=== PATIENT | female | born 1985 | race Caucasian/White ===

== ENCOUNTER → 2023-05-29 | Emergency (ER) | payer OTHER ==
[~2023-05-29] MED LIST: AZITHROMYCIN 250 MG TAB ONE; LEVALBUTEROL 1.25 MG/3 ML NEB ONE
[2023-05-29 08:09] LABS: SARS-CoV-2 Antigen CONTROL BLUE LINE VIS/BG OK; SARS-CoV-2 Antigen Rapid Res Negative (Negative)
--- NOTE | 2023-05-29 08:55 | RAD REPORT ---
EXAM DESCRIPTION: Jeri Single View05/29/2023 8:34 am CLINICAL HISTORY: Cough COMPARISON: none FINDINGS: The lungs appear clear of acute infiltrate. The heart is normal size IMPRESSION: No acute abnormalities displayed
--- NOTE | 2023-05-29 09:09 | EDPHYS ---
Physician Documentation [facility] Name: Ad Roberts Age: 37 yrs Sex: Female : 1985 Arrival Date: 05/29/2023 Time: 07:35 Bed 20 Private MD: ED Physician Young Acuna HPI: 05/28 07:45 This 37 yrs old Female presents to ER via Unassigned with complaints of Cough, Fever, rn Sore Throat. 07:45 The patient or guardian reports cough. Onset: The symptoms/episode began/occurred 2 rn day(s) ago. Severity of symptoms: At their worst the symptoms were mild, in the emergency department the symptoms are unchanged. Modifying factors: The symptoms are alleviated by nothing, the symptoms are aggravated by nothing. 07:47 Associated signs and symptoms: Pertinent positives: fever, sore throat, Pertinent rn negatives: chest pain, vomiting. The patient has experienced similar episodes in the past. . Historical: - Allergies: 07:39 Latex, Natural Rubber; aa5 - PMHx: 07:39 Lupus erythematosus; aa5 - PSHx: 07:39 None; aa5 - Immunization history:: Adult Immunizations unknown. - Social history:: Smoking status: Patient reports the use of cigarette tobacco products, denies chronic smoking, but will smoke occasionally. - Family history:: not pertinent. - Hospitalizations: : No recent hospitalization is reported. ROS: 08:57 Constitutional: Positive for fever and chills ENT: Positive for sore throat video intern: Negative for chest pain, palpitations, and edema, Respiratory: Positive for cough Abdomen/GI: Negative for abdominal pain, nausea, vomiting, diarrhea, and constipation MS/Extremity: Negative for injury and deformity, Skin: Negative for injury, rash, and discoloration, Neuro: Negative for headache, weakness, numbness, tingling, and seizure, Exam: 09:03 Constitutional: This is a well developed, well nourished patient who is awake, alert, rn and in no acute distress. Head/Face: Normocephalic, atraumatic. ENT: Oropharynx with mild redness, no stridor Neck: Trachea midline, no masses palpated, and no cervical lymphadenopathy. Supple, full range of motion without nuchal rigidity, or vertebral point tenderness. No Meningismus. Cardiovascular: Regular rate and rhythm. No pulse deficits. Respiratory: No increased work of breathing, no retractions or nasal flaring. Mild wheezing focal right midlung Abdomen/GI: Soft, non-tender MS/ Extremity: Pulses equal, no cyanosis. Neuro: Awake and alert, GCS 15 Vital Signs: 07:39 BP 116 / 83; Pulse 71; Resp 18 S; Temp 98.5(O); Pulse Ox 97% on R/A; Weight 68.04 kg aa5 (R); Height 5 ft. 6 in. (R); 08:00 BP 99 / 73; Pulse 64; Resp 18; Pulse Ox 100% on R/A; db 09:00 BP 114 / 75; Pulse 67; Resp 18; Pulse Ox 99% ; db 07:39 Body Mass Index 24.21 (68.04 kg, 167.64 cm) aa5 Faustino Coma Score: 08:00 Eye Response: spontaneous(4). Motor Response: obeys commands(6). Verbal Response: db oriented(5). Total: 15. MDM: 07:39 Patient medically screened. rn 09:06 Differential Diagnosis: Bronchitis Influenza Upper Respiratory Infection Pharyngitis rn Viral Syndrome Pneumonia. Data reviewed: vital signs, nurses notes, lab test result(s), radiologic studies, plain films, and as a result, I will discharge patient. Counseling: I had a detailed discussion with the patient and/or guardian regarding the historical points, exam findings, and any diagnostic results supporting the discharge/admit diagnosis, lab results, radiology results, the need for outpatient follow up, to return to the emergency department if symptoms worsen or persist or if there are any questions or concerns that arise at home. Special discussion: I discussed with the patient/guardian in detail that at this point there is no indication for admission to the hospital. It is understood, however, that if the symptoms persist or worsen the patient needs to return immediately for re-evaluation. 05/28 07:44 Order name: Strep rn 05/28 07:44 Order name: Flu; Complete Time: 08:56 rn 05/28 07:44 Order name: SARS RAPID; Complete Time: 08:56 rn 05/28 08:11 Order name: Throat Culture EDMS 05/28 07:44 Order name: XRAY Chest (1 view); Complete Time: 08:56 rn Administered Medications: 07:58 Drug: Levalbuterol Inhalation 1.25 mg Inhalation once Route: Inhalation; db 09:28 Follow up: Response: No adverse reaction db 09:10 Drug: AZITHromycin PO 500 mg PO once Route: PO; db 09:28 Follow up: Response: No adverse reaction db Disposition Summary: 05/29/23 09:08 Discharge Ordered Notes: Location: Home rn Problem: new rn Symptoms: have improved rn Condition: Stable rn Diagnosis - Pneumonia, unspecified organism rn Followup: rn - With: Private Physician - When: As needed - Reason: Recheck today's complaints, Re-evaluation by your physician Discharge Instructions: - Discharge Summary Sheet rn - Community-Acquired Pneumonia, Adult rn Forms: - Medication Reconciliation Form rn - Thank You Letter rn - Antibiotic maternity floor supervisor - Prescription Opioid Use rn - Patient Portal Instructions rn - Leadership Thank You Letter rn Prescriptions: - albuterol sulfate 90 mcg/actuation Inhalation HFA Aerosol Inhaler - inhale 2 inhalation INHALATION route every 3 to 4 hours As needed as needed for rn bronchospasm; administer via ventilator; 1 unit; Refills: 0, Product Selection Permitted - Zithromax Z-Adam 250 mg Oral Tablet - take 1 tablet ORAL route as directed for 5 days Day 1 - take two (2) tablets rn one time. Day 2, 3, 4 , 5 take one (1) tablet once daily.; 6 tablet; Refills: 0, Product Selection Permitted Signatures: Dispatcher [employer] Young Esposito MD MD rn Calderon, Audri, RN RN aa5 Maricruz Montero RN RN db
--- NOTE | 2023-05-29 09:09 | ER ---
Nurse's Notes [facility] Name: Ad Roberts Age: 37 yrs Sex: Female : 1985 Arrival Date: 05/29/2023 Time: 07:35 Bed 20 Private MD: Diagnosis: Pneumonia, unspecified organism Presentation: 05/28 07:39 Chief complaint: Patient states: chills, generalized weakness, sore throat, and cough aa5 that began 2 days ago. 07:39 Coronavirus screen: cough unrelated to allergies. Ebola Screen: Patient denies travel aa5 to an Ebola-affected area in the 21 days before illness onset. Initial Sepsis Screen: Does the patient meet any 2 criteria? No. Patient's initial sepsis screen is negative. Does the patient have a suspected source of infection? No. Patient's initial sepsis screen is negative. Risk Assessment: Do you want to hurt yourself or someone else? Patient reports no desire to harm self or others. Onset of symptoms was May 2023. 07:39 Acuity: MICHAEL 3 aa5 07:39 Method Of Arrival: Ambulatory aa5 Historical: - Allergies: 07:39 Latex, Natural Rubber; aa5 - PMHx: 07:39 Lupus erythematosus; aa5 - PSHx: 07:39 None; aa5 - Immunization history:: Adult Immunizations unknown. - Social history:: Smoking status: Patient reports the use of cigarette tobacco products, denies chronic smoking, but will smoke occasionally. - Family history:: not pertinent. - Hospitalizations: : No recent hospitalization is reported. Screenin:44 [facility] ED Fall Risk Assessment (Adult) History of falling in the last 3 months, db including since admission No falls in past 3 months (0 pts) Confusion or Disorientation No (0 pts) Intoxicated or Sedated No (0 pts) Impaired Gait No (0 pts) Mobility Assist Device Used No (0 pt). 09:27 Abuse screen: Denies threats or abuse. Denies injuries from another. Nutritional db screening: No deficits noted. Tuberculosis screening: No symptoms or risk factors identified. Assessment: 07:44 Reassessment: Patient appears in no apparent distress at this time. Patient and/or db family updated on plan of care and expected duration. Pain level reassessed. Patient is alert, oriented x 3, equal unlabored respirations, skin warm/dry/pink. COUGH AND CONGESTION WITH SORE THROAT. General: Appears in no apparent distress. comfortable, Behavior is calm, cooperative. Pain: Complains of pain in SORE THROAT. Neuro: Level of Consciousness is awake, alert, obeys commands, Oriented to person, place, time, situation. Cardiovascular: No deficits noted. Respiratory: Airway is patent Respiratory effort is even, unlabored, Respiratory pattern is regular, symmetrical, Breath sounds are coarse in right upper lobe. GI: No deficits noted. No signs and/or symptoms were reported involving the gastrointestinal system. : No deficits noted. No signs and/or symptoms were reported regarding the genitourinary system. EENT: Throat is pink. Derm: No deficits noted. No signs and/or symptoms reported regarding the dermatologic system. Musculoskeletal: No deficits noted. No signs and/or symptoms reported regarding the musculoskeletal system. 08:50 Reassessment: PT WITH RADIOLOGY. db 09:27 Reassessment: Patient appears in no apparent distress at this time. Patient and/or db family updated on plan of care and expected duration. Pain level reassessed. Patient is alert, oriented x 3, equal unlabored respirations, skin warm/dry/pink. Patient states feeling better. Patient states symptoms have improved. Vital Signs: 07:39 BP 116 / 83; Pulse 71; Resp 18 S; Temp 98.5(O); Pulse Ox 97% on R/A; Weight 68.04 kg aa5 (R); Height 5 ft. 6 in. (R); 08:00 BP 99 / 73; Pulse 64; Resp 18; Pulse Ox 100% on R/A; db 09:00 BP 114 / 75; Pulse 67; Resp 18; Pulse Ox 99% ; db 07:39 Body Mass Index 24.21 (68.04 kg, 167.64 cm) aa5 Headrick Coma Score: 08:00 Eye Response: spontaneous(4). Motor Response: obeys commands(6). Verbal Response: db oriented(5). Total: 15. ED Course: 07:38 Patient arrived in ED. rg4 07:38 Young Acuna MD is Attending Physician. rn 07:39 Arm band placed on Patient placed in an exam room, on a stretcher. aa5 07:44 Maricruz Montero RN is Primary Nurse. db 07:46 Patient has correct armband on for positive identification. Bed in low position. Call db light in reach. Side rails up X 1. Pulse ox on. NIBP on. 07:47 Triage completed. aa5 07:49 Initial lab(s) drawn, by me, sent to lab. COVID swab sent to lab. Flu and/or RSV swab db sent to lab. Strep swab sent to lab. 08:15 X-ray(s) taken. db 08:25 Patient maintains SpO2 saturation greater than 95% on room air. db 08:26 Provided Education on: BREATHING TREATMENT, XRAY, LABS. db 08:26 Initial Neb Treatment Given as ordered Patient was instructed and evaluated on db procedure Patient tolerated procedure well without adverse effect. 08:27 O2 via IMPROVED AFTER BREATHING TREATMENT Response to oxygen therapy: symptoms improved.db 08:36 XRAY Chest (1 view) In Process Unspecified. EDMS 09:27 No provider procedures requiring assistance completed. Patient did not have IV access db during this emergency room visit. Administered Medications: 07:58 Drug: Levalbuterol Inhalation 1.25 mg Inhalation once Route: Inhalation; db 09:28 Follow up: Response: No adverse reaction db 09:10 Drug: AZITHromycin PO 500 mg PO once Route: PO; db 09:28 Follow up: Response: No adverse reaction db Medication: 07:44 VIS not applicable for this client. db Outcome: 09:08 Discharge ordered by . rn 09:27 Discharged to home ambulatory, db 09:27 Condition: stable 09:27 Discharge instructions given to patient, Instructed on discharge instructions, follow up and referral plans. Prescriptions given X 2, 09:28 Patient left the ED. db Signatures: Dispatcher [employer] EDDC Young Acuna MD MD rn Calderon, Audri, RN RN aa5 Kathleen Roberts4 Maricruz Montero RN RN db Corrections: (The following items were deleted from the chart) 07:46 07:44 Respiratory: Airway is patent Respiratory effort is even, unlabored, Respiratory db pattern is regular, symmetrical, Breath sounds are clear db
[2023-05-29 09:52] VITALS: BP 114/75; TEMP 98.5; O2SAT 99
== END ==
LOC: ER 07:35
DX: J18.9 Pneumonia, unspecified organism (principal); Z11.52 Encounter for screening for COVID-19; F17.210 Nicotine dependence, cigarettes, uncomplicated; Z91.040 Latex allergy status; Z91.048 Other nonmedicinal substance allergy status
CPT/HCPCS: 87070; 36415; 87081; 87804 ×2; 71045; 99285; 87811; J7614

== ENCOUNTER 2023-06-16 10:41 | Emergency (ER) | payer OTHER ==
--- OUTSIDE RECORDS SUMMARY | 2023-06-16 10:45 | XMS REPORT | Continuity of Care Document ---
Author Name Unknown Address [address] [facility] [address] [place] [address] [facility] Address [address] [facility] [place] [address] Care Team Providers Care Alcohol Rubber Name Role Phone PCP, PATIENT DOES NOT HAVE A Primary Care Physic ALFREDA Burnett Attending Clinician PREETHI Gross Attending Clinician Unavail able [facility] UnaPreethi Roper Attending Clinician + Doctor Unassigned, [place] Attending Clinician U navailable Payers Payer Name Policy Type Policy Number Effective Date Expirati on Date Source [facility] [id number] 2023 00:00:00 [employer] [place] [id number] 2023 00:00:00 Allergies, Adverse Reactions, Alerts Allergy Name Allergy Type Status Severity Reaction(s) Onset Date Inactive Date Treating Clinician Comments Source NO KNOWN ALLERGIE S Drug Class Active [facility] Social History Social Habit Start Date Stop Date Quantity Comments Source Sexual orientation U [facility] Sex Assigned At 1985 00:00:00 1985 00:00:00 [facility] Smoking Status Start Date Stop Date Source Tobacco smoking consumption unknown [facility] Vital Signs Vital Name Observation Time Observation Value Comments Dao shi Systolic blood pressure 2023-04-07 19:55:00 134 mm[Hg] [facility] Diastolic blood pressure 2023-04-07 19:55:00 83 mm[Hg] [facility] Heart rate 2023-04-07 19:55:00 74 /min [facility] Body temperature 2023-04-07 19:55:00 36.17 Nery [facility] Respiratory rate 2023-04-07 19:55:00 18 /min [facility] Body height 2023-04-07 19:55:00 167.6 cm [facility] Body weight 2023-04-07 19:55:00 73.936 kg [facility] BMI 2023-04-07 19:55:00 26.31 kg/m2 [facility] Procedures Procedure Date / Time Performed Performing Clinicia n Source POCT TEST 2023-04-07 20:01:00 Frankie Booth [facility] CONSENT/REFUSAL FOR DIAGNOSIS AND TREATMENT 2023-04-07 19:31:59 Doctor Unassigned, [place] [facility] ASSIGNMENT OF BENEFITS 2023-04-07 19:31:42 Docto r Unassigned, [place] [facility] Encounters Start Date/Time End Date/Time Encounter Type Admission Type Attending Clinicians Care Facility Care Department Encounter ID Source 2023-05-21 10:30:00 2023-05-21 10:30:[address] [facility] [id number] [facility] 2023-04-28 13:30:00 2023-04-28 13:30:[address] [facility] [id number] [facility] 2023-04-07 14:00:00 2023-04-07 14:13:14 Nurse Visit Visit, [facility] Nurse Preethi Booth [facility] [id number] [facility] 2023-04-07 14:00:00 2023-04-07 14:13:[address] [facility] [id number] [facility] 2023-04-07 00:00:00 2023-04-07 00:00:00 Orders Only Doctor Unassigned, [place] [facility] [id number] [facility] Results Test Description Test Time Test Comments Results Result Co mments Source [facility]
--- NOTE | 2023-06-16 12:43 | RAD REPORT ---
EXAM DESCRIPTION: RAD - Foot Right 3 View - 06/16/2023 12:30 pm CLINICAL HISTORY: PAIN COMPARISON: <Comparisons> FINDINGS: Soft tissue swelling is present affecting the second toe. No fracture or dislocation seen. Tiny calcaneal spurs.
[2023-06-16] MEDS ORDERED: KETOROLAC 30 MG/ML INJ ONE (13:08)
[2023-06-16] MEDS ORDERED: HYDROCODONE/APAP 5/325 MG TAB ONE (13:09)
--- NOTE | 2023-06-16 13:40 | ER ---
Nurse's Notes [facility] Name: Ad Roberts Age: 37 yrs Sex: Female : 1985 Arrival Date: 06/16/2023 Time: 10:41 Bed Treatment Private MD: Diagnosis: Contusion of right foot-With avulsion of nail bed Presentation: 06/15 10:59 Method Of Arrival: Ambulatory ll1 11:00 Chief complaint: Patient states: R foot crushed at noon yesterday when a large chair ll1 fell onto it. Coronavirus screen: Client denies travel out of the [place] in the last 14 days. At this time, the client does not indicate any symptoms associated with coronavirus-19. Ebola Screen: Patient denies travel to an Ebola-affected area in the 21 days before illness onset. Initial Sepsis Screen: Does the patient meet any 2 criteria? No. Patient's initial sepsis screen is negative. Does the patient have a suspected source of infection? No. Patient's initial sepsis screen is negative. Risk Assessment: Do you want to hurt yourself or someone else? Patient reports no desire to harm self or others. Onset of symptoms was June 15, 2023. 11:00 Acuity: MICHAEL 4 ll1 Historical: - Allergies: 10:55 Latex; ll1 10:59 FISH PRODUCT DERIVATIVES; ll1 - PMHx: 10:55 Lupus erythematosus; ll1 - Immunization history:: Adult Immunizations up to date. - Infectious Disease History:: Denies. - Social history:: Smoking status: Patient reports the use of cigarette tobacco products, denies chronic smoking, but will smoke occasionally, Reported history of juuling and/or vaping. Screenin:15 [facility] ED Fall Risk Assessment (Adult) History of falling in the last 3 months, ss including since admission No falls in past 3 months (0 pts) Confusion or Disorientation No (0 pts) Intoxicated or Sedated No (0 pts) Impaired Gait No (0 pts) Mobility Assist Device Used No (0 pt) Altered Elimination No (0 pt) Score/Fall Risk Level 0 - 2 = Low Risk. Abuse screen: Denies threats or abuse. Denies injuries from another. Nutritional screening: No deficits noted. Tuberculosis screening: Never had TB. Assessment: 13:15 General: Appears in no apparent distress. comfortable, Behavior is calm, cooperative. ss Pain: Complains of pain in R foot Pain currently is 8 out of 10 on a pain scale. Quality of pain is described as tender, throbbing. Neuro: Level of Consciousness is awake, alert, obeys commands, Oriented to person, place, time, situation. Respiratory: Airway is patent Respiratory effort is even, unlabored, Respiratory pattern is regular, symmetrical. Derm: Skin is pink, warm \T\ dry. normal. 13:55 Reassessment: awaiting for discharge papers to be printed. ss 14:11 Reassessment: Patient appears in no apparent distress at this time. Patient and/or ss family updated on plan of care and expected duration. Pain level reassessed. Vital Signs: 11:00 BP 124 / 78; Pulse 74; Resp 16; Temp 98.9; Pulse Ox 96% ; Pain 8/10; ll1 14:11 BP 122 / 70; Pulse 64; Resp 16; Pulse Ox 98% ; Pain 5/10; ss 11:00 Pain Scale: Adult ll1 14:11 Pain Scale: Adult ss ED Course: 10:44 Patient arrived in ED. im 10:55 Arm band placed on. ll1 11:01 Triage completed. ll1 11:06 Carolina Sousa is Attending Physician. ci 12:32 XRAY Foot RIGHT 3 View In Process Unspecified. EDMS 13:06 Aissatou North, RN is Primary Nurse. ss 13:15 Patient has correct armband on for positive identification. Bed in low position. Call ss light in reach. 14:11 No provider procedures requiring assistance completed. Patient did not have IV access ss during this emergency room visit. Administered Medications: 13:14 Drug: Ketorolac IM 30 mg IM once Route: IM; Site: left gluteus; ss 14:12 Follow up: Response: No adverse reaction; Pain is decreased ss 13:14 Drug: HYDROcodone-acetaminophen PO 5 mg-325 mg 1 tabs PO once Route: PO; ss 14:12 Follow up: Response: No adverse reaction; Pain is decreased; RASS: Alert and Calm (0) ss Medication: 13:15 VIS not applicable for this client. ss Outcome: 13:39 Discharge ordered by MD. ci 14:11 Discharged to home ambulatory, ss 14:11 Condition: good 14:11 Discharge instructions given to patient, Instructed on discharge instructions, follow up and referral plans. Demonstrated understanding of instructions, follow-up care, Prescriptions given X 2, 14:12 Patient left the ED. ss Signatures: Dispatcher [employer] EDAissatou Gorman RN RN Angelo Marshall RN RN ll1 Debby Clarke Iheonunekwu, Carolina Corrections: (The following items were deleted from the chart) 11:00 10:59 Social history: Smoking status: Patient denies any tobacco usage or history of. ll1 ll1
--- NOTE | 2023-06-16 13:40 | EDPHYS ---
Physician Documentation [facility] Name: Ad Roberts Age: 37 yrs Sex: Female : 1985 Arrival Date: 06/16/2023 Time: 10:41 Bed Treatment Private MD: ED Physician Carolina Sousa HPI: 06/15 13:24 This 37 yrs old Female presents to ER via Ambulatory with complaints of Crush Injury To ci Foot. 13:24 Patient is a 37-year-old female with PMH lupus who presents with right foot injury that ci occurred yesterday afternoon. Patient lifted a large cheese chair that accidentally fell on the right foot, reports right second toe nail avulsed and she had some bleeding that is now controlled. Has had swelling and pain around the great toe. No aggravating or relieving factors. Tetanus up-to-date.. Historical: - Allergies: 10:55 Latex; ll1 10:59 FISH PRODUCT DERIVATIVES; ll1 - PMHx: 10:55 Lupus erythematosus; ll1 - Immunization history:: Adult Immunizations up to date. - Infectious Disease History:: Denies. - Social history:: Smoking status: Patient reports the use of cigarette tobacco products, denies chronic smoking, but will smoke occasionally, Reported history of juuling and/or vaping. ROS: 13:24 MS/extremity: Positive for contusion, ecchymosis, pain, swelling, tenderness, ci Exam: 13:24 Constitutional: This is a well developed, well nourished patient who is awake, alert, ci and in no acute distress. Head/Face: Normocephalic, atraumatic. Eyes: Pupils equal round and reactive to light, extra-ocular motions intact. Lids and lashes normal. Conjunctiva and sclera are non-icteric and not injected. Cornea within normal limits. Periorbital areas with no swelling, redness, or edema. ENT: Nares patent. No nasal discharge, no septal abnormalities noted. Tympanic membranes are normal and external auditory canals are clear. Oropharynx with no redness, swelling, or masses, exudates, or evidence of obstruction, uvula midline. Mucous membranes moist. Neck: Trachea midline, no thyromegaly or masses palpated, and no cervical lymphadenopathy. Supple, full range of motion without nuchal rigidity, or vertebral point tenderness. No Meningismus. Chest/axilla: Normal chest wall appearance and motion. Nontender with no deformity. No lesions are appreciated. Cardiovascular: Regular rate and rhythm with a normal S1 and S2. No gallops, murmurs, or rubs. Normal PMI, no JVD. No pulse deficits. Respiratory: Lungs have equal breath sounds bilaterally, clear to auscultation and percussion. No rales, rhonchi or wheezes noted. No increased work of breathing, no retractions or nasal flaring. Abdomen/GI: Soft, non-tender, with normal bowel sounds. No distension or tympany. No guarding or rebound. No evidence of tenderness throughout. Back: No spinal tenderness. No costovertebral tenderness. Full range of motion. Skin: Warm, dry with normal turgor. Normal color with no rashes, no lesions, and no evidence of cellulitis. MS/ Extremity: Pulses equal, no cyanosis. Neurovascular intact. Full, normal range of motion. R foot mild ecchymosis around 2nd metatarsal. No step offs/deformity Neuro: Awake and alert, GCS 15, oriented to person, place, time, and situation. Cranial nerves II-XII grossly intact. Motor strength 5/5 in all extremities. Sensory grossly intact. Cerebellar exam normal. Normal gait. Psych: Awake, alert, with orientation to person, place and time. Behavior, mood, and affect are within normal limits. 13:52 MS/ Extremity: Pulses equal, no cyanosis. Neurovascular intact. Full, normal range ci of motion. Right foot contusion, right second toe avulsed nail with moderate tenderness to palpation and mild ecchymosis. Vital Signs: 11:00 BP 124 / 78; Pulse 74; Resp 16; Temp 98.9; Pulse Ox 96% ; Pain 8/10; ll1 14:11 BP 122 / 70; Pulse 64; Resp 16; Pulse Ox 98% ; Pain 5/10; ss 11:00 Pain Scale: Adult ll1 14:11 Pain Scale: Adult ss MDM: 12:00 Patient medically screened. ci 13:24 Differential diagnosis: fracture, sprain, foreign body, arthritis, cellulitis. Data ci reviewed: vital signs, nurses notes. ED course: Patient presents for right foot injury. X-ray with no obvious fracture. Likely sustained a contusion. Will discharge with naproxen and outpatient podiatry/Ortho follow-up.. 06/15 11:59 Order name: XRAY Foot RIGHT 3 View; Complete Time: 13:23 ci Administered Medications: 13:14 Drug: Ketorolac IM 30 mg IM once Route: IM; Site: left gluteus; ss 14:12 Follow up: Response: No adverse reaction; Pain is decreased ss 13:14 Drug: HYDROcodone-acetaminophen PO 5 mg-325 mg 1 tabs PO once Route: PO; ss 14:12 Follow up: Response: No adverse reaction; Pain is decreased; RASS: Alert and Calm (0) ss Disposition Summary: 06/16/23 13:39 Discharge Ordered Notes: Location: Home ci Condition: Stable ci Diagnosis - Contusion of right foot - With avulsion of nail bed(06/16/23 13:56) ci Followup: ci - With: Private Physician - When: 1 - 2 days - Reason: Recheck today's complaints, Re-evaluation by your physician Discharge Instructions: - Discharge Summary Sheet ci - Fingernail or Toenail Removal, Adult, Care After ci Forms: - Medication Reconciliation Form ci - Thank You Letter ci - Antibiotic Education ci - Prescription Opioid Use ci - Patient Portal Instructions ci - Leadership Thank You Letter ci Prescriptions: - mupirocin 2 % Topical ointment - apply 1 application TOPICAL route 2 times per day Apply to toe BID X 7 DAYS; 1 ci Each; Refills: 0, Product Selection Permitted - Anaprox DS 550 mg Oral Tablet - take 1 tablet ORAL route every 12 hours As needed; 20 tablet; Refills: 0, ci Product Selection Permitted Signatures: Dispatcher MedHo Aissatou Silva RN RN ss Lewis, Lynsay, RN RN ll1 Carolina Sousa ci Corrections: (The following items were deleted from the chart) 11:00 10:59 Social history: Smoking status: Patient denies any tobacco usage or history of. ll1 ll1 13:56 13:39 Contusion of right foot ci ci
[2023-06-16 14:44] VITALS: BP 122/70; TEMP 98.9; O2SAT 98
== END 2023-06-16 14:12 | disposition home or self-care (01) ==
LOC: ER 10:41
DX: S90.221A Contusion of right lesser toe(s) with damage to nail, initial encounter (principal); F17.210 Nicotine dependence, cigarettes, uncomplicated; Z91.013 Allergy to seafood; Z91.040 Latex allergy status

== ENCOUNTER 2023-11-25 09:07 | Emergency (ER) | payer OTHER ==
--- OUTSIDE RECORDS SUMMARY | 2023-11-25 09:11 | XMS REPORT | Continuity of Care Document ---
Author Name Unknown Address [address] [facility] [address] [place] [address] [facility] thconnect Address [address] [facility] [address] [place] [address] Care Team Providers Care Certified Executive Chef Name Role Phone Pcp, Patient Does Not Have A Primary Care Physic zane JENNY LUGO Attending Clinician Unavailable ALFREDA CASTANEDA Attending Clinician UnavailPREETHI Arriola Attending Clinician Unavail able [facility], [facility] UnaPreethi Roper Attending Clinician + Doctor Unassigned, [place] Attending Clinician U navailable Payers Payer Name Policy Type Policy Number Effective Date Expirati on Date Source [facility] [id number] 2023 00:00:00 [employer] [place] [id number] 2023 00:00:00 Allergies, Adverse Reactions, Alerts Allergy Name Allergy Type Status Severity Reaction(s) Onset Date Inactive Date Treating Clinician Comments Source [facility] [employer] Active Swelling 07-05 00:00: 00 [facility] Latex Propensi ty to adverse reaction s Active Swelling 07-05 00:00: 00 [facility] NO KNOWN ALLERGIE S Drug Class Active [facility] Social History Social Habit Start Date Stop Date Quantity Comments Source History of tobacco use Cigarette Smoker [facility] Tobacco use and exposure 2023-07-06 00:00:00 2023-07-06 00:00:00 Smokeless tobacco non-user [facility] Alcohol intake 2023-07-06 00:00:00 2023-07-06 00:00:00 Current drinker of alcohol (finding) [facility] History of Social function 2023-07-06 00:00:00 2023-07-06 00:00:00 [facility] Alcohol Comment 2023-07-06 00:00:00 2023-07-06 00:00:00 social [facility] Sex Ass[birth year] At 1985 00:00:00 1985 00:00:00 [facility] Smoking Status Start Date Stop Date Source Tobacco smoking consumption unknown [facility] Smokes tobacco daily 2023-07-06 00:00:00 [facility] Medications Ordered Medication Name Filled Medication Name Start Date Stop Date Current Medication? Ordering Clinician Indication Dosage Frequency Signature (SIG) Comments Components Source fluconazole 150 mg tablet 07-05 00:00: 00 Yes [id number] Take one tablet PO today, then repeat in 72 hours [facility] Vital Signs Vital Name Observation Time Observation Value Comments S ource Systolic blood pressure 2023-07-06 15:57:00 130 mm[Hg] [facility] Diastolic blood pressure 2023-07-06 15:57:00 67 mm[Hg] [facility] Heart rate 2023-07-06 15:57:00 77 /min [facility] Respiratory rate 2023-07-06 15:57:00 18 /min [facility] Body height 2023-07-06 15:57:00 167.6 cm [facility] Body weight 2023-07-06 15:57:00 71.668 kg [facility] BMI 2023-07-06 15:57:00 25.50 kg/m2 [facility] Systolic blood pressure 2023-04-07 19:55:00 134 mm[Hg] [facility] Diastolic blood pressure 2023-04-07 19:55:00 83 mm[Hg] [facility] Heart rate 2023-04-07 19:55:00 74 /min [facility] Body temperature 2023-04-07 19:55:00 36.17 Nery [facility] Respiratory rate 2023-04-07 19:55:00 18 /min [facility] Body height 2023-04-07 19:55:00 167.6 cm [facility] Body weight 2023-04-07 19:55:00 73.936 kg [facility] BMI 2023-04-07 19:55:00 26.31 kg/m2 [facility] Procedures Procedure Date / Time Performed Performing Clinicia n Source POCT TEST 2023-04-07 20:01:00 Frankie Alan [facility] CONSENT/REFUSAL FOR DIAGNOSIS AND TREATMENT 2023-04-07 19:31:59 Doctor Unassigned, [place] [facility] ASSIGNMENT OF BENEFITS 2023-04-07 19:31:42 Docto r Unassigned, [place] [facility] Encounters Start Date/Time End Date/Time Encounter Type Admission Type Attending Clinicians Care Facility Care Department Encounter ID Source 2024-07-11 09:30:00 2024-07-11 09:30:00 Outpatient JENNY CORONEL [facility] [id number] [facility] 2023-07-06 11:00:00 2023-07-06 11:20:52 Outpatient JENNY CORONEL [facility] [id number] [facility] 2023-07-06 11:00:00 2023-07-06 11:20:52 Office Visit Jenny Lugo [facility] [id number] [facility] 2023-05-21 10:30:00 2023-05-21 10:30:00 Outpatient ALFREDA ALDANA [facility] [id number] [facility] 2023-04-28 13:30:00 2023-04-28 13:30:00 Outpatient PREETHI WHITAKER [facility] [id number] [facility] 2023-04-07 14:00:00 2023-04-07 14:13:14 Nurse Visit Visit, [facility] Nurse Preethi Alan [employer] [facility] [id number] [facility] 2023-04-07 14:00:00 2023-04-07 14:13:14 Outpatient R PREETHI ALAN [facility] [id number] [facility] 2023-04-07 00:00:00 2023-04-07 00:00:00 Orders Only Doctor Unassigned, [place] [facility] [id number] [facility] Results Test Description Test Time Test Comments Results Result Co mments Source [facility]
[2023-11-25 09:54] LABS: SARS-CoV-2 Antigen CONTROL BLUE LINE VIS/BG OK; SARS-CoV-2 Antigen Rapid Res Negative (Negative)
[2023-11-25] MEDS ORDERED: AZITHROMYCIN 250 MG TAB ONE (10:41)
--- NOTE | 2023-11-25 11:01 | ER ---
Nurse's Notes [facility] Name: Ad Roberts Age: 38 yrs Sex: Female : 1985 Arrival Date: 11/25/2023 Time: 09:07 Bed 12 Private MD: Diagnosis: Acute upper respiratory infection, unspecified;Cough Presentation: 11/24 09:15 Chief complaint: Patient states: throat hurts bad, headache and sinus pressure, chest iw hurts when she breathes, fever , symptoms started Thursday. Coronavirus screen: Client presents with at least one sign or symptom that may indicate coronavirus-19. Ebola Screen: No symptoms or risks identified at this time. Initial Sepsis Screen: Does the patient meet any 2 criteria? No. Patient's initial sepsis screen is negative. Does the patient have a suspected source of infection? No. Patient's initial sepsis screen is negative. Risk Assessment: Do you want to hurt yourself or someone else? Patient reports no desire to harm self or others. Onset of symptoms was November 22, 2023. 09:15 Method Of Arrival: Ambulatory iw 09:15 Acuity: MICHAEL 4 iw Triage Assessment: 09:15 General: Appears in no apparent distress. Behavior is calm, cooperative. Pain: iw Complains of pain in head. Historical: - Allergies: 09:16 FISH PRODUCT DERIVATIVES; iw 09:16 Latex; iw - Home Meds: 09:16 None [Active]; iw - PMHx: 09:16 Lupus erythematosus; iw - PSHx: 09:16 Tonsillectomy; D\T\C; iw - Immunization history:: Adult Immunizations not up to date. - Infectious Disease History:: Denies. - Social history:: Smoking status: Patient reports the use of cigarette tobacco products. - Family history:: not pertinent. Screenin:09 [facility] ED Fall Risk Assessment (Adult) History of falling in the last 3 months, tm6 including since admission No falls in past 3 months (0 pts) Confusion or Disorientation No (0 pts) Intoxicated or Sedated No (0 pts) Impaired Gait No (0 pts) Mobility Assist Device Used No (0 pt) Altered Elimination No (0 pt) Score/Fall Risk Level 0 - 2 = Low Risk Oriented to surroundings, Maintained a safe environment, Educated pt \T\ family on fall prevention, incl call for assistance when getting out of bed. Abuse screen: Denies threats or abuse. Denies injuries from another. Nutritional screening: No deficits noted. Tuberculosis screening: No symptoms or risk factors identified. Assessment: 11:09 Reassessment: Patient appears in no apparent distress at this time. Patient and/or iw family updated on plan of care and expected duration. Pain level reassessed. Patient is alert, oriented x 3, equal unlabored respirations, skin warm/dry/pink. Vital Signs: 09:15 BP 114 / 68; Pulse 79; Resp 16; Temp 98; Pulse Ox 98% on R/A; Weight 74.84 kg; iw 11:08 BP 113 / 69; Pulse 69; Resp 19; Temp 98; Pulse Ox 99% on R/A; Pain 0/10; tm6 11:08 Pain Scale: Adult tm6 ED Course: 09:09 Patient arrived in ED. im 09:10 Juan Francisco Last MD is Attending Physician. [facility] 09:16 Triage completed. iw 09:18 Arm band placed on. iw 09:26 Strep Sent. bc6 09:26 SARS RAPID Sent. bc6 09:26 Flu Sent. bc6 09:26 COVID swab sent to lab. Flu and/or RSV swab sent to lab. Strep swab sent to lab. bc6 10:37 Cinthia Gandhi, RN is Primary Nurse. 11:01 Charly Mcneill DO is Referral Physician. [facility] 11:09 Patient has correct armband on for positive identification. Provided Education on: use tm6 of prescription meds. 11:09 No provider procedures requiring assistance completed. Patient did not have IV access tm6 during this emergency room visit. Administered Medications: 10:59 Drug: AZITHromycin PO 500 mg PO once Route: PO; 11:00 Follow up: Response: No adverse reaction; Medication administered at discharge. iw Medication: 11:00 VIS not applicable for this client. Outcome: 11: Discharge ordered by . [facility] 11:09 Discharged to home ambulatory, tm6 11:09 Condition: stable 11:09 Discharge instructions given to patient, Instructed on discharge instructions, follow up and referral plans. medication usage, Demonstrated understanding of instructions, follow-up care, medications, Prescriptions given X 3, 11:09 Patient left the ED. iw Signatures: Juan Francisco Last MD MD cha Williams, Irene, RN RN Danisha Lin bc6 Debby Clarke Tawney, RN RN tm6 Corrections: (The following items were deleted from the chart) 09:16 PSHx: None; iw 09:18 09:15 BP 114 / 68; Pulse 79bpm; Resp 16bpm; Pulse Ox 98% RA; Temp 98F; iw
--- NOTE | 2023-11-25 11:01 | EDPHYS ---
Physician Documentation [facility] Name: Ad Roberts Age: 38 yrs Sex: Female : 1985 Arrival Date: 11/25/2023 Time: 09: Bed 12 Private MD: ALISA Physician Juan Francisco Last HPI: 11/24 10:57 This 38 yrs old Female presents to ER via Ambulatory with complaints of Flu carlos alberto Symptoms. 10:57 The patient or guardian reports airway noise, cough, described as mild. Onset: The carlos alberto symptoms/episode began/occurred 2 day(s) ago. Modifying factors: The symptoms are alleviated by nothing. the symptoms are aggravated by nothing. The patient or guardian reports flu symptoms, arthralgias, low-grade fever, myalgias, no appetite. Severity of symptoms: At their worst the symptoms were moderate, in the emergency department the symptoms are unchanged. Associated signs and symptoms: The patient has no apparent associated signs or symptoms. Modifying factors: The symptoms are alleviated by nothing, the symptoms are aggravated by nothing. Severity of symptoms: At their worst the symptoms were moderate in the emergency department the symptoms are unchanged. The patient has experienced similar episodes in the past, a few times. Historical: - Allergies: 09:16 FISH PRODUCT DERIVATIVES; iw 09:16 Latex; iw - Home Meds: 09:16 None [Active]; iw - PMHx: 09:16 Lupus erythematosus; iw - PSHx: 09:16 Tonsillectomy; D\\T\\C; iw - Immunization history:: Adult Immunizations not up to date. - Infectious Disease History:: Denies. - Social history:: Smoking status: Patient reports the use of cigarette tobacco products. - Family history:: not pertinent. ROS: 10:57 Constitutional: Negative for fever, chills, and weight loss, Eyes: Negative for injury, carlos alberto pain, redness, and discharge, ENT: Negative for injury, pain, and discharge, Neck: Negative for injury, pain, and swelling, Cardiovascular: Negative for chest pain, palpitations, and edema, Abdomen/GI: Negative for abdominal pain, nausea, vomiting, diarrhea, and constipation, Back: Negative for injury and pain, : Negative for injury, bleeding, discharge, and swelling, MS/Extremity: Negative for injury and deformity, Skin: Negative for injury, rash, and discoloration, Neuro: Negative for headache, weakness, numbness, tingling, and seizure, Psych: Negative for depression, anxiety, suicide ideation, homicidal ideation, and hallucinations, Allergy/Immunology: Negative for hives, rash, and allergies, Endocrine: Negative for neck swelling, polydipsia, polyuria, polyphagia, and marked weight changes, Hematologic/Lymphatic: Negative for swollen nodes, abnormal bleeding, and unusual bruising, 10:57 Respiratory: Positive for cough, "sounds productive", Exam: 10:57 Constitutional: This is a well developed, well nourished patient who is awake, alert, carlos alberto and in no acute distress. Head/Face: Normocephalic, atraumatic. Eyes: Pupils equal round and reactive to light, extra-ocular motions intact. Lids and lashes normal. Conjunctiva and sclera are non-icteric and not injected. Cornea within normal limits. Periorbital areas with no swelling, redness, or edema. Neck: Trachea midline, no thyromegaly or masses palpated, and no cervical lymphadenopathy. Supple, full range of motion without nuchal rigidity, or vertebral point tenderness. No Meningismus. Chest/axilla: Normal chest wall appearance and motion. Nontender with no deformity. No lesions are appreciated. Cardiovascular: Regular rate and rhythm with a normal S1 and S2. No gallops, murmurs, or rubs. Normal PMI, no JVD. No pulse deficits. Abdomen/GI: Soft, non-tender, with normal bowel sounds. No distension or tympany. No guarding or rebound. No evidence of tenderness throughout. Back: No spinal tenderness. No costovertebral tenderness. Full range of motion. Female : Normal external genitalia. Skin: Warm, dry with normal turgor. Normal color with no rashes, no lesions, and no evidence of cellulitis. MS/ Extremity: Pulses equal, no cyanosis. Neurovascular intact. Full, normal range of motion. Neuro: Awake and alert, GCS 15, oriented to person, place, time, and situation. Cranial nerves II-XII grossly intact. Motor strength 5/5 in all extremities. Sensory grossly intact. Cerebellar exam normal. Normal gait. Psych: Awake, alert, with orientation to person, place and time. Behavior, mood, and affect are within normal limits. 10:57 Respiratory: the patient does not display signs of respiratory distress, Respirations: normal, Breath sounds: rales, are not appreciated, bronchial sounds, that are mild, are scattered, decreased breath sounds, that are mild, are scattered, rhonchi, that are mild, are scattered, stridor, is not appreciated, + upper airway congestion. 10:57 Musculoskeletal/extremity: DVT Exam: No signs of deep vein thrombosis. no pain, no swelling, no tenderness, negative Homans' sign noted on exam, no appreciated bluish discoloration, no erythema, no increased warmth, Vital Signs: 09:15 BP 114 / 68; Pulse 79; Resp 16; Temp 98; Pulse Ox 98% on R/A; Weight 74.84 kg; iw 11:08 BP 113 / 69; Pulse 69; Resp 19; Temp 98; Pulse Ox 99% on R/A; Pain 0/10; tm6 11:08 Pain Scale: Adult tm6 MDM: 09:10 Patient medically screened. [facility] 10:59 Differential diagnosis: bronchitis, flu, URI. Antibiotic administration: The patient is carlos alberto discharged and will get outpatient antibiotics, Zithromax. Differential Diagnosis: Obstructed Airway Bronchitis Influenza Upper Respiratory Infection Sinusitis Pharyngitis Allergic Rhinitis Asthma Exacerbation Viral Syndrome Pneumonia. Data reviewed: vital signs, nurses notes, lab test result(s), Flu: negative. Consideration of Admission/Observation Escalation of care including admission/observation considered. I considered the following discharge prescriptions or medication management in the emergency department Medications were administered in the Emergency Department. See MAR. Test considered but Not performed: Labs: no cbc, no comp met. Care significantly affected by the following chronic conditions: lupus. Counseling: I had a detailed discussion with the patient and/or guardian regarding the historical points, exam findings, and any diagnostic results supporting the discharge/admit diagnosis, lab results, the need for outpatient follow up, for definitive care, a family practitioner. 11/24 09:18 Order name: Flu; Complete Time: 10:33 [facility] 11/24 09:18 Order name: SARS RAPID; Complete Time: 10:33 [facility] 11/24 09:18 Order name: Strep [facility] 11/24 09:57 Order name: Throat Culture EDMS Administered Medications: 10:59 Drug: AZITHromycin PO 500 mg PO once Route: PO; iw 11:00 Follow up: Response: No adverse reaction; Medication administered at discharge. Disposition Summary: 11/25/23 11:01 Discharge Ordered Notes: Location: Home carlos alberto Problem: new carlos alberto Symptoms: have improved carlos alberto Condition: Stable carlos alberto Diagnosis - Acute upper respiratory infection, unspecified carlos alberto - Cough carlos alberto Followup: carlos alberto - With: Private Physician - When: 2 - 3 days - Reason: Recheck today's complaints, Continuance of care, Re-evaluation by your physician Followup: carlos alberto - With: Charly Mcneill DO - When: 2 - 3 days - Reason: Recheck today's complaints, Re-evaluation by your physician Discharge Instructions: - Discharge Summary Sheet carlos alberto - Upper Respiratory Infection, Adult carlos alberto - Cool Mist Vaporizer carlos alberto - Upper Respiratory Infection, Adult, [id number] carlos alberto - Cough, Adult, [id number] carlos alberto - Cough, Adult carlos alberto Forms: - Medication Reconciliation Form carlos alberto - Antibiotic Education carlos alberto - Prescription Opioid Use carlos alberto - Patient Portal Instructions carlos alberto - Leadership Thank You Letter carlos alberto - Work release form Prescriptions: - Tessalon Perles 100 mg Oral capsule - take 2 capsule ORAL route every 8 hours As needed; 30 capsule; Refills: 0, carlos alberto Product Selection Permitted - Zithromax Z-Adam 250 mg Oral tablet - take 1 tablet ORAL route as directed for 5 days Day 1 - take two (2) tablets carlos alberto one time. Day 2, 3, 4 , 5 take one (1) tablet once daily.; 6 tablet; Refills: 0, Product Selection Permitted - Medrol (Adam) 4 mg Oral Tablets, Dose Pack - take 1 tablet ORAL route as directed - follow package instructions; 1 packet; carlos alberto Refills: 0, Product Selection Permitted Signatures: Dispatcher [employer] Juan Francisco Mccullough MD MD cha Williams, Irene, RN RN iw Corrections: (The following items were deleted from the chart) 09:17 09:16 PSHx: None; iw iw
[2023-11-25 11:14] VITALS: TEMP 98
[2023-11-25 11:16] VITALS: BP 113/69; O2SAT 99
== END 2023-11-25 11:09 | disposition home or self-care (01) ==
LOC: ER 09:07
DX: J06.9 Acute upper respiratory infection, unspecified (principal); Z11.52 Encounter for screening for COVID-19; Z72.0 Tobacco use
CPT/HCPCS: 36415; 87070; 87081; 87804; 87811